=== PATIENT | male | born 1965 | race Caucasian/White ===

== ENCOUNTER 2023-09-05 12:40 | Inpatient (IN) | payer SELFPAY ==
[~2023-09-05] VITALS: Ht 180.3 cm; Wt 94.4 kg
[2023-09-05 13:06] LABS: BASOPHILS ABSOLUTE AUTO 0.07 K/mm3 (0.00-0.23); BASOPHILS PERCENT AUTO 1 % (0-2); EOSINOPHILS ABSOLUTE AUTO 0.21 K/mm3 (0.00-0.68); EOSINOPHILS PERCENT AUTO 2 % (0-6); IMMATURE GRAN ABSOLUTE AUTO 0.12 K/mm3 (0.00-0.10); IMMATURE GRAN PERCENT AUTO 1 % (0-1); LYMPHOCYTES ABSOLUTE AUTO 0.92 K/mm3 (0.84-5.20); LYMPHOCYTES PERCENT AUTO 9 % (21-46); MONOCYTES ABSOLUTE AUTO 0.86 K/mm3 (0.16-1.47); MONOCYTES PERCENT AUTO 9 % (4-13); Mean Corpuscular HGB 31.1 pg (26.0-34.0); Mean Corpuscular HGB Conc 33.7 g/dL (31.5-36.5); Mean Corpuscular Volume 92 fL (80-100); Mean Platelet Volume 9.5 fL (9.1-12.4); NEUTROPHILS ABSOLUTE AUTO 7.79 K/mm3 (1.96-9.15); NEUTROPHILS PERCENT AUTO 78 % (41-73); Platelet Count 223 K/mm3 (150-400); RDW Coefficient Variation 15.2 % (11.7-14.2); RDW Standard Deviation 50.5 fL (35.1-46.3); Red Blood Cell Count 6.11 M/mm3 (4.30-5.90); White Blood Cell Count 9.97 K/mm3 (4.00-11.30)
[2023-09-05 13:07] LABS: Hematocrit 56.4 % (37.0-53.0)
[2023-09-05 13:32] LABS: Albumin, Blood 3.5 g/dL (3.4-5.0); Bilirubin, Total 3.4 mg/dL (0.1-1.0); Bun/Creatinine Ratio 18.9 (12.0-20.0); Calcium, Blood 8.5 mg/dL (8.5-10.1); Creatinine, Blood 1.27 mg/dL (0.60-1.20); Globulin, Blood 3.5 g/dL (2.2-4.0); Potassium, Blood 4.5 mmol/L (3.5-5.5)
[2023-09-05 14:33] LABS: Influenza A, PCR NEGATIVE (NEGATIVE); Influenza B, PCR NEGATIVE (NEGATIVE); Resp Syncytial Virus, PCR NEGATIVE (NEGATIVE); SARS-Cov-2 (COVID-19) PCR, MMC NEGATIVE (NEGATIVE)
[2023-09-05 16:41] LABS: PCO2 Venous 45.6 mmHg (38-42); pH Blood Venous 7.32 (7.34-7.37)
[2023-09-05 16:42] LABS: Base Excess Venous -2.9 mmol/L; Bicarbonate Venous 21.6 mmol/L (24.0-30.0)
[2023-09-05 18:11] LABS: Bilirubin, Direct 1.1 mg/dL (0.0-0.3); Bilirubin, Indirect 2.3 mg/dL (0.1-0.7); Bilirubin, Total 3.4 mg/dL (0.1-1.0)
[2023-09-05] MEDS ORDERED: Furosemide 10 MG / ML 2ML Vial IV ONE ×2 (19:50→20:05)
[2023-09-05] MEDS ORDERED: Losartan Potassium 25 MG Tab PO SCH (21:00)
[2023-09-05 21:26] LABS: Thyroid Stimulating Hormone 2.02 uIU/mL (0.360-4.800)
[2023-09-05 21:51] VITALS: BP 156/108
--- NOTE | 2023-09-05 22:29 | NUR ---
DOCTOR COMMUNICATION CALL PLACED TO DR. KELLEY TO UPDATE HIM ON THE PATIENTS CONDITION. THIS RN SPOKE TO RT AND HOW THE PATIENT WAS HAVING O2 SATS IN THE LOW TO MID 80'S WITH ANY MOVEMENT, AND CRACKLES NOED T/O ALL LUNG BARRIENTOS. RT RECCOMENDED BIPAP. DR. KELLEY ARRIVED TO ASSESS THE PATIENT AND STATED THAT IF THE PATIENT IS IMPROVING THAT HE CAN BE DOWNGRADED BACK TO A NASAL CANNULA.
[2023-09-06] VITALS (7 sets, daily range): BP systolic 130–159; BP diastolic 94–114
--- NOTE | 2023-09-06 05:41 | NUR ---
SHIFT SUMMARY VSS, PT REMAINS ON BIPAP @10/5, FIO2 @45. O2 SATS REMAIN >90%. PT TOLLERATING THIS INTERVENTION WELL. HAVE NOT TRIALED PUTTING PT ON NC, PLAN FOR THIS TO HAPPEN TODAY. PT HAS SLEPT ON AND OFF T/O THE NIGHT. TROPS HAVE TRENDED UP AND DOWN T/O THE NIGHT, RESIDENT REPORTS HE FEELS IT IS NOT CARDAIC RELATED AT THIS TIME. EDEMA IN BLE HAS IMPROVED, RLE REMAINS RED AND WARM TO THE TOUCH. PT HAS NOT C/O WORSENING DISCOMFORT. AWAITING VENOUS DOPPLER STUDY AND ECHO TODAY. PT HAS VOIDED OVER 3500 MLS T/O THE NIGHT INDEPENDENTLY INTO A URINAL. TOLLERATING PO INTAKE W/O N/V. THE PATIENT IS CURRENTLY SLEEPING, IN NO DISTRESS, CALL LIGHT IN REACH
[2023-09-06 05:45] LABS: Hemoglobin 19.1 g/dL (13.5-17.5); Mean Corpuscular HGB 30.8 pg (26.0-34.0); Mean Corpuscular HGB Conc 32.9 g/dL (31.5-36.5); Mean Corpuscular Volume 94 fL (80-100); Mean Platelet Volume 9.9 fL (9.1-12.4); Platelet Count 225 K/mm3 (150-400); RDW Coefficient Variation 15.2 % (11.7-14.2); RDW Standard Deviation 51.4 fL (35.1-46.3); White Blood Cell Count 8.96 K/mm3 (4.00-11.30)
[2023-09-06 05:54] LABS: Hematocrit 58.1 % (37.0-53.0)
[2023-09-06 06:10] LABS: Albumin, Blood 3.3 g/dL (3.4-5.0); Albumin/Globulin Ratio 0.9 (0.8-1.8); Bilirubin, Total 3.2 mg/dL (0.1-1.0); Creatinine, Blood 1.22 mg/dL (0.60-1.20); Globulin, Blood 3.7 g/dL (2.2-4.0); Potassium, Blood 4.4 mmol/L (3.5-5.5)
[2023-09-06 06:13] LABS: BASOPHILS PERCENT MAN 0 % (0-2); EOSINOPHILS ABSOLUTE MAN 0.08 K/mm3 (0.00-0.68); EOSINOPHILS PERCENT MAN 1 % (0-6); LYMPHOCYTES ABSOLUTE MAN 0.17 K/mm3 (0.84-5.20); LYMPHOCYTES PERCENT MAN 2 % (21-46); MONOCYTES ABSOLUTE MAN 0.98 K/mm3 (0.16-1.47); MONOCYTES PERCENT MAN 11 % (4-13); SEG NEUTROPHILS PERCENT MAN 86 % (41-73); TOTAL CELLS COUNTED 100
[2023-09-06 07:51] LABS: BASOPHILS ABSOLUTE AUTO 0.06 K/mm3 (0.00-0.23); BASOPHILS PERCENT AUTO 1 % (0-2); EOSINOPHILS ABSOLUTE AUTO 0.44 K/mm3 (0.00-0.68); EOSINOPHILS PERCENT AUTO 5 % (0-6); IMMATURE GRAN PERCENT AUTO 1 % (0-1); LYMPHOCYTES PERCENT AUTO 9 % (21-46); MONOCYTES ABSOLUTE AUTO 0.94 K/mm3 (0.16-1.47); MONOCYTES PERCENT AUTO 10 % (4-13); NEUTROPHILS ABSOLUTE AUTO 6.85 K/mm3 (1.96-9.15); NEUTROPHILS PERCENT AUTO 75 % (41-73)
[2023-09-06] MEDS ORDERED: Enoxaparin 40 MG/0.4 ML SYR SC SCH (09:00)
[2023-09-06] MEDS ORDERED: Furosemide 10 MG / ML 2ML Vial IV SCH (11:00)
--- NOTE | 2023-09-06 16:46 | NUR ---
SHIFT SUMMARY PT IS DROWSY & OX4, HE IS SBA FOR TX, MOVES IND IN THE BED, USES THE URINAL AT THE BEDSIDE, AND HE CAN MAKE HIS NEEDS KNOWN. THE PT HAS BEEN BETWEEN THE BIPAP 10/5 @ 55% AND >15 HFNC. WHEN HE IS LAYING ON EITHER SIDE, AND WHEN ASLEEP HE DESATURATES AND HAS TO BE PLACED BACK ON THE BIPAP. WHEN AWAKE HE CAN MAINTAIN HIS SP02 ON THE HFNC 13- >15L HFNC. BP STABLE. ON TELE THE PT IS SR 60'S-80'S. PT RECIEVED 20MG LASIX IV THIS MORNING, AND IS BEING DIURESED. NO ACUTE EVENTS THIS SHIFT. SEE NOTES FOR ANY UPDATES.
[2023-09-06] MEDS ORDERED: Furosemide 10 MG / ML 2ML Vial IV ONE (18:00)
[2023-09-07 03:30] VITALS: BP 134/95
--- NOTE | 2023-09-07 04:45 | NUR ---
SHIFT SUMMARY PATIENT ALERT AND ORIENTED X4. HAD NO COMPLAINTS OF CHEST PAIN, VITAL SIGNS STABLE, SINUS RHYTHM ON TELE. CONTINUES ON HIGH FLOW, CURRENTLY WITH AIRVO SETTINGS: 50 LITERS AND 75% FIO2 WITH SPO2 >90%. NO ACUTE ISSUES NOTED OVERNIGHT. WILL CONTINUE TO MONITOR. CALL LIGHT WITHIN REACH.
[2023-09-07 07:19] VITALS: BP 129/98
[2023-09-07 08:42] LABS: Hematocrit 60.8 % (37.0-53.0)
[2023-09-07 09:05] LABS: Albumin, Blood 3.3 g/dL (3.4-5.0); Albumin/Globulin Ratio 0.8 (0.8-1.8); Bilirubin, Total 2.4 mg/dL (0.1-1.0); Bun/Creatinine Ratio 18.9 (12.0-20.0); Creatinine, Blood 1.27 mg/dL (0.60-1.20); Potassium, Blood 4.4 mmol/L (3.5-5.5); Total Protein, Blood 7.3 g/dL (6.4-8.2)
[2023-09-07 11:13] VITALS: BP 130/85
[2023-09-07 15:22] VITALS: BP 129/87
--- NOTE | 2023-09-07 16:14 | NUR ---
SHIFT SUMMARY THE PT IS A&OX4, IND W/ URINAL AND ADLS. HE IS ON THE AIRVO 40L 90%. SP02 >90%. ON TELE HE IS SR 70'S=80'S. BP STABLE. THE PT DENIES ANY INCREASED SOB OR DECREASED SOB. HE SAYS HE FEELS "THE SAME". WE DID A NM LUNG-VENT STUDY TODAY AND ARE WAITING FOR RESULTS. THE PT IS PLEASENT AND CALLS APPROPRIATELY. NO ACUTE EVENTS. SEE NOTES FOR UPDATES.
[2023-09-07 20:16] VITALS: BP 128/100
[2023-09-07] MEDS ORDERED: Nystatin 100,000 Unit/ML Susp 5 ML UDC SS SCH (21:00)
[2023-09-08 05:35] LABS: BASOPHILS ABSOLUTE AUTO 0.07 K/mm3 (0.00-0.23); BASOPHILS PERCENT AUTO 1 % (0-2); EOSINOPHILS ABSOLUTE AUTO 0.38 K/mm3 (0.00-0.68); EOSINOPHILS PERCENT AUTO 5 % (0-6); Hemoglobin 19.7 g/dL (13.5-17.5); IMMATURE GRAN ABSOLUTE AUTO 0.15 K/mm3 (0.00-0.10); IMMATURE GRAN PERCENT AUTO 2 % (0-1); LYMPHOCYTES ABSOLUTE AUTO 0.76 K/mm3 (0.84-5.20); LYMPHOCYTES PERCENT AUTO 9 % (21-46); MONOCYTES ABSOLUTE AUTO 0.89 K/mm3 (0.16-1.47); MONOCYTES PERCENT AUTO 11 % (4-13); Mean Corpuscular HGB 30.8 pg (26.0-34.0); Mean Corpuscular HGB Conc 32.8 g/dL (31.5-36.5); Mean Corpuscular Volume 94 fL (80-100); Mean Platelet Volume 9.9 fL (9.1-12.4); NEUTROPHILS ABSOLUTE AUTO 6.05 K/mm3 (1.96-9.15); NEUTROPHILS PERCENT AUTO 73 % (41-73); Platelet Count 225 K/mm3 (150-400); RDW Coefficient Variation 15.5 % (11.7-14.2); RDW Standard Deviation 50.1 fL (35.1-46.3); Red Blood Cell Count 6.39 M/mm3 (4.30-5.90)
--- NOTE | 2023-09-08 05:51 | NUR ---
SHIFT SUMMARY PATIENT ALERT AND ORINETED X4. HAD NO COMPLAINTS OF PAIN OR SHORTNESS OF BREATH. PATIENT CONTINUES ON AIRVO SETTINGS CURRENTLY AT 40L 75% FIO2, SPO2 >90%. VITAL SIGNS STABLE, SINUS RHYTHM IN THE 70'S ON TELE. NO ACUTE ISSUES NOTED OVERNIGHT. WILL CONTINUE TO MONITOR. CALL LIGHT WITHIN REACH.
[2023-09-08 06:15] LABS: Albumin, Blood 2.9 g/dL (3.4-5.0); Albumin/Globulin Ratio 0.7 (0.8-1.8); Bilirubin, Total 2.1 mg/dL (0.1-1.0); Bun/Creatinine Ratio 21.1 (12.0-20.0); Calcium, Blood 8.7 mg/dL (8.5-10.1); Creatinine, Blood 1.09 mg/dL (0.60-1.20); Globulin, Blood 3.9 g/dL (2.2-4.0); Potassium, Blood 4.3 mmol/L (3.5-5.5); Total Protein, Blood 6.8 g/dL (6.4-8.2)
[2023-09-08 08:00] VITALS: BP 131/92
[2023-09-08 12:00] VITALS: BP 122/85
[2023-09-08 16:25] VITALS: BP 135/101
--- NOTE | 2023-09-08 17:56 | NUR ---
SHIFT SUMMARY PT A/OX4 AND COOPERATIVE OF CARE. PT ABLE TO EXPRESS NEEDS AND CALLED APPROPIATELY. PT REMAINED ON AIRVO 40L, TITRATED FIO2 FROM 80-60%. PT TOLERATED TITRATION FAIR. PT HAD SOME SLIGHT SOB WITH EXERTION. OTHER VSS THROUGHOUT SHIFT. NO REPORT OF CHEST PAIN/PRESSURE THROUGHOUT SHIFT. PT WAS UP TO RECLINER FOR MOST OF SHIFT. PT USING URINAL WHILE IN RECLINER/BED.
[2023-09-08 20:27] VITALS: BP 139/102
[2023-09-09 00:21] VITALS: BP 130/105
[2023-09-09 04:12] VITALS: BP 136/100
[2023-09-09 04:31] LABS: BASOPHILS ABSOLUTE AUTO 0.09 K/mm3 (0.00-0.23); BASOPHILS PERCENT AUTO 1 % (0-2); EOSINOPHILS ABSOLUTE AUTO 0.38 K/mm3 (0.00-0.68); EOSINOPHILS PERCENT AUTO 5 % (0-6); Hemoglobin 20.4 g/dL (13.5-17.5); IMMATURE GRAN PERCENT AUTO 2 % (0-1); LYMPHOCYTES ABSOLUTE AUTO 0.82 K/mm3 (0.84-5.20); LYMPHOCYTES PERCENT AUTO 10 % (21-46); MONOCYTES ABSOLUTE AUTO 0.94 K/mm3 (0.16-1.47); MONOCYTES PERCENT AUTO 11 % (4-13); Mean Corpuscular HGB 30.7 pg (26.0-34.0); Mean Corpuscular HGB Conc 33.1 g/dL (31.5-36.5); Mean Corpuscular Volume 93 fL (80-100); Mean Platelet Volume 9.6 fL (9.1-12.4); NEUTROPHILS ABSOLUTE AUTO 5.92 K/mm3 (1.96-9.15); NEUTROPHILS PERCENT AUTO 71 % (41-73); Platelet Count 233 K/mm3 (150-400); RDW Coefficient Variation 15.4 % (11.7-14.2); RDW Standard Deviation 50.2 fL (35.1-46.3); Red Blood Cell Count 6.65 M/mm3 (4.30-5.90); White Blood Cell Count 8.35 K/mm3 (4.00-11.30)
[2023-09-09 04:33] LABS: Hematocrit 61.7 % (37.0-53.0)
[2023-09-09 04:40] LABS: Bun/Creatinine Ratio 19.3 (12.0-20.0); Creatinine, Blood 1.14 mg/dL (0.60-1.20); Potassium, Blood 4.7 mmol/L (3.5-5.5)
--- NOTE | 2023-09-09 05:16 | NUR ---
SHIFT SUMMARY PATIENT ALERT AND ORIENTED X4. HAD NO COMPLAINTS OF PAIN OR SHORTNESS OF BREATH. CONTINUES ON AIRVO WITH SETTINGS RANGING FROM 40L AT 60% FIO2 TO 40L AT 85% FIO2 TO MAINTAIN SPO2 >90%. VITAL SIGNS STABLE, SINUS RHYTHM ON TELE. NO ACUTE ISSUES NOTED OVERNIGHT. WILL CONTINUE TO MONITOR. CALL LIGHT WITHIN REACH.
[2023-09-09 07:30] VITALS: BP 140/101
[2023-09-09 12:01] VITALS: BP 128/83
--- NOTE | 2023-09-09 12:28 | NUR ---
UPDATE PT FAMILY ARRIVED AT 1215 TO THE PT'S ROOM. ONE OF PT'S FAMILY MEMBERS APPROACHED THIS RN AND [facility], [facility]ANN[facility], AND ASKED FOR PRIMARY NURSE. THIS RN IDENTIFIED PT'S NURSE. PT FAMILY MEMBER THEN REQUESTED THAT PT BE "TRANSFERED TO [facility]. WE LIVE UP THERE AND THIS IS TOO FAR FOR US TO TRAVEL IN ORDER TO ADVOCATE FOR HIM." THIS RN INFORMED FAMILY THAT PT WAS NOT STABLE TO LEAVE AND THAT HEMATOLOGY HAS BEEN CONSULTED FOR POSSIBLE POLYCYTHEMIA. FAMILY AGAIN REQUESTED THAT THE TRANSFER HAPPENS BY STATING "WE HAVE NURSE FRIENDS THAT TOLD US WE CAN HAVE A TRANSFER WITH JUST A FEW PHONE CALLS. WE CALLED PATIENT [facility] YESTERDAY BUT NO ONE ANSWERED OR RETURNED OUR CALL." THIS RN INFORMED FAMILY MEMBER THAT PT'S DON'T GET TRANSFERED JUST BY REQUESTS RATHER TRANSFERS ARE FOR WHEN PT'S NEED HIGHER LEVEL OF CARE OR WHEN RESOURCES ARE NEEDED THAT THIS HOSPITAL DOES NOT HAVE. PT FAMILY MEMBER CONTINUES TO INSIST THT PT GET TRANSFERED. THIS RN INFOMRED FAMILY MEMBER MD WILL BE CALLED AND NOTIFED AND DUSTLESS OPERATOR WILL ALSO BE NOTIFED. 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 HE ALSO WANTS TO BE TRANSFERED." NOTIFIED OF CONVERSATION.
[2023-09-09 15:44] VITALS: BP 108/82
--- NOTE | 2023-09-09 18:11 | NUR ---
SHIFT SUMMARY PT A/OX4 AND COOPERATIVE OF CARE. PT ABLE TO EXPRESS NEEDS AND CALLED APPROPIATE. PT REMAINED ON AIRVO THROUGHOUT LAST NIGHT AND THIS SHIFT. FIO2 UP IN 80'S DURING NIGHT, TITRATED BACK TO 60'S THIS SHIFT. PT TOLERATED WELL. SATS REAMINED IN 90'S, PT DENIES SOB. OTHER VSS THROUGHOUT SHIFT. NO REPORT OF CHEST PAIN/PRESSURE. PT SEEN BY PULMONLOGY AND CARDIOLOGY MD'S TODAY. PLPAN IS FOR RIGHT HEART CATH MONDAY UNLESS PT IS TRANSFERED TO [facility]. FAMILY PRESENT AND UPDATED BY MULTIPLE NEEDLE STITCHER, FAMILY REQUESTED PT BE TRANFERED [facility], SEE PREVIOUS NOTES. NO ACUTE EVENTS.
[2023-09-09 20:23] VITALS: BP 129/89
--- NOTE | 2023-09-09 20:54 | NUR ---
ASSUMPTION OF CARE Pt resting in hospital bed, alert and oriented x4, pt on airvo 40L and 51% to maintain spo2 above 90%. Monitor shows sinus rhythm, HR and BP stable. Pt denies shortness of breath and denies chest pain. Pt denies GI/ issues, tolerating PO intake. Pts right leg swelling, provider aware, venous duplex completed prior and negative for DVT, pt denies pain to extremity, pulses strong bilaterally. Pt denies any needs at this time, warm blanket provided for comfort.
[2023-09-10 00:03] VITALS: BP 117/90
[2023-09-10 03:45] LABS: BASOPHILS PERCENT AUTO 1 % (0-2); EOSINOPHILS ABSOLUTE AUTO 0.41 K/mm3 (0.00-0.68); EOSINOPHILS PERCENT AUTO 5 % (0-6); Hemoglobin 20.4 g/dL (13.5-17.5); IMMATURE GRAN ABSOLUTE AUTO 0.19 K/mm3 (0.00-0.10); IMMATURE GRAN PERCENT AUTO 2 % (0-1); LYMPHOCYTES ABSOLUTE AUTO 0.79 K/mm3 (0.84-5.20); LYMPHOCYTES PERCENT AUTO 10 % (21-46); MONOCYTES ABSOLUTE AUTO 0.85 K/mm3 (0.16-1.47); MONOCYTES PERCENT AUTO 11 % (4-13); Mean Corpuscular HGB 30.7 pg (26.0-34.0); Mean Corpuscular HGB Conc 33.2 g/dL (31.5-36.5); Mean Corpuscular Volume 93 fL (80-100); Mean Platelet Volume 9.3 fL (9.1-12.4); NEUTROPHILS ABSOLUTE AUTO 5.76 K/mm3 (1.96-9.15); NEUTROPHILS PERCENT AUTO 71 % (41-73); Platelet Count 233 K/mm3 (150-400); RDW Coefficient Variation 15.2 % (11.7-14.2); RDW Standard Deviation 49.5 fL (35.1-46.3); Red Blood Cell Count 6.65 M/mm3 (4.30-5.90)
[2023-09-10 03:48] LABS: Hematocrit 61.5 % (37.0-53.0)
[2023-09-10 04:00] VITALS: BP 129/82
[2023-09-10 04:03] LABS: Bun/Creatinine Ratio 25.2 (12.0-20.0); Creatinine, Blood 1.07 mg/dL (0.60-1.20); Potassium, Blood 4.6 mmol/L (3.5-5.5)
--- NOTE | 2023-09-10 06:07 | NUR ---
SHIFT SUMMARY Pt rested well throughout night, remains oriented. Oxygen demand increased during shift, pt currently on airvo at 50L and 80%, other vital signs remain stable. Pt denies shortness of breath or chest pain. Pt denies GI/ issues and is stand by assist to restroom.
[2023-09-10 07:11] VITALS: BP 136/99
[2023-09-10 11:22] VITALS: BP 123/81
[2023-09-10 12:10] VITALS: BP 123/81
--- NOTE | 2023-09-10 13:26 | NUR ---
TRANSFER & SHIFT SUMMARY PATIENT ALERT AND ORIENTED x4, ABLE TO MAKE NEEDS KNOWN TO STAFF. BP STABLE. PATIENT ON 50L 65-80% FIO2, WITH SPO2 LOW TO MID 90s. PATIENT ON TELE UNTIL TRANSFER, READING SR 80s. PATIENT STANDBY ASSIST TO CHAIR. USING URINAL AT BEDSIDE, ADEQUATE OUTPUT. COBRA TRANSFER INITIATED THIS MORNING. PATIENT TRANSPORTED TO [facility] WITH ALL BELONGINGS.
[2023-09-11 15:21] LABS: HOMOCYSTEINE, TOTAL 14 umol/L (0-15)
[2023-09-11 18:01] LABS: ERYTHROPOIETIN 7 mU/mL (4-27)
[2023-09-12 00:13] LABS: B2GLYCOPROTEIN 1, IGG ANTIBODY <10 SGU (<=20); B2GLYCOPROTEIN 1, IGM ANTIBODY <10 SMU (<=20)
[2023-09-12 05:25] LABS: CARDIOLIPIN ANTIBODY IGG <10 GPL (<=14); CARDIOLIPIN ANTIBODY IGM <10 MPL (<=12)
[2023-09-12 10:20] LABS: PROTEIN C FUNCTIONAL 83 % (83-168)
[2023-09-12 11:07] LABS: APC RESISTANCE 3.53 (>=2.00); FACTOR V LEIDEN BY PCR Not Done; FACV REF SPECIMEN Not Done
[2023-09-12 11:11] LABS: PROTEIN S AG FREE 137 % (74-147)
[2023-09-12 11:15] LABS: ANTI-XA QUALITATIVE INTERP Not Performed (Not Present); ANTICOAG MEDICATION NEUTRALIZ Not Performed (Not Performed); DRVVT 1:1 MIX RATIO Not Performed (<=1.20); DRVVT CONFIRMATION RATIO Not Performed (<=1.20); DRVVT SCREEN RATIO 1.17 (<=1.20); HEXAGONAL PHOSPHOLIPID CONFIRM Not Performed s (<=7.9); NEUTRALIZED DRVVT SCREEN RATIO Not Performed (<=1.20); NEUTRALIZED PTT-LA RATIO Not Performed (<=1.20); PROTHROMBIN TIME (PT) 14.6 s (12.0-15.5); PTT-LA RATIO 1.13 (<=1.20); THROMBIN TIME (TT) Not Performed s (<=19.5)
[2023-09-12 17:21] LABS: ANTITHROMBIN, ENZYM (ACTIVITY) 94 % (76-128)
== END 2023-09-10 12:56 | disposition short-term general hospital (02) | DRG 314 ==
LOC: ER 12:40 → PCU 18:07
PROVIDERS: Emergency Medicine; Internal Medicine; Physician Assistant; Student in an Organized Health Care Education/Training Program; ADMIT Family Medicine
PROC: 5A09357 Assistance with Respiratory Ventilation, Less than 24 Consecutive Hours, Continuous Positive Airway Pressure (ICD-10-PCS; principal; 2023-09-05)
PROC: 5A0945A Assistance with Respiratory Ventilation, 24-96 Consecutive Hours, High Flow/Velocity Cannula (ICD-10-PCS; 2023-09-06)
DX: I27.20 Pulmonary hypertension, unspecified (principal); J96.01 Acute respiratory failure with hypoxia; N17.9 Acute kidney failure, unspecified; J96.12 Chronic respiratory failure with hypercapnia; D75.1 Secondary polycythemia; Z87.891 Personal history of nicotine dependence; R79.89 Other specified abnormal findings of blood chemistry; E80.6 Other disorders of bilirubin metabolism; F10.90 Alcohol use, unspecified, uncomplicated; K74.60 Unspecified cirrhosis of liver; K76.0 Fatty (change of) liver, not elsewhere classified; K57.90 Diverticulosis of intestine, part unspecified, without perforation or abscess without bleeding; D73.5 Infarction of spleen; F15.10 Other stimulant abuse, uncomplicated; I27.81 Cor pulmonale (chronic); K40.90 Unilateral inguinal hernia, without obstruction or gangrene, not specified as recurrent
CPT/HCPCS: 0241U; 36415; 71260; 74177; 78582; 80048; 80053; 82247; 82248; 82668; 82803; 83735; 83880; 84443; 84484; 85007; 85014; 85018; 85025; 85027; 85060; 85379; 93005; 93010; 93306; 93970; 94660; 94762; 99285-25; A9270; A9540; J1650; J1940; Q9967